=== PATIENT | female | born 1955 | race Caucasian/White ===

== ENCOUNTER → 2019-11-25 11:19 | Outpatient (CLI) | payer OTHER, SELFPAY ==
--- NOTE | ~2019-11-25 | DEXA_ITS ---
Bone Density Report Name: Zohreh Le Age: 64 Sex: Female Ethnicity: White Date of : 1955 Indication: monitoring treatment; prior fracture; hysterectomy; postmenopausal Referring Provider: LUIS A MORAES Study: Bone densitometry was performed. Exam Date: November 25, 2019 Accession number: [id number] Bone Density: Region BMD T-score Z-score Classification AP Spine (L1-L4) 1.100 0.5 2.4 Normal Femoral Neck (Left) 0.686 -1.5 0.1 Osteopenia Total Hip (Left) 1.038 0.8 2.1 Normal Femoral Neck (Right) 0.664 -1.7 -0.1 Osteopenia Total Hip (Right) 0.931 -0.1 1.2 Normal Total Hip Mean 0.985 0.4 1.7 Normal World Health Organization criteria for BMD impression classify patients as: Normal (T-score at or above -1.0), Osteopenia (T-score between -1.0 and -2.5), or Osteoporosis (T-score at or below -2.5). 10-year Fracture Risk: FRAX not reported because: Prior hip or vertebral fracture Treated for osteoporosis Previous Exams: Region Exam Age BMD T-score BMD Change BMD Change Date g/cm2 vs Baseline vs Previous AP Spine(L1-L4) 11/25/2019 64 1.100 0.5 0.068* 0.009 07/15/2017 62 1.091 0.4 0.059* -0.007 05/11/2014 59 1.097 0.5 0.065* 0.065* 12/10/2005 50 1.032 -0.1 Total Hip(Left) 11/25/2019 64 1.038 0.8 0.027 -0.023 07/15/2017 62 1.061 1.0 0.049* 0.052* 05/11/2014 59 1.009 0.5 -0.003 -0.003 12/10/2005 50 1.011 0.6 Total Hip(Right) 11/25/2019 64 0.931 -0.1 0.006 -0.008 07/15/2017 62 0.938 0.0 0.014 -0.019 05/11/2014 59 0.957 0.1 0.033* 0.033* 12/10/2005 50 0.924 -0.1 *Denotes significance at 95% confidence level, LSC for AP Spine = 0.022 g/cm2, LSC for Total Hip = 0.027 g/cm2 Clinical Information Provided by Patient: Have had a previous hip or vertebral fracture Has had a low trauma fracture Is being treated for osteoporosis Has used the following medications: HRT (i.e. estrogen/hormone therapy), Calcium Has the following medical conditions: Hysterectomy Patient maximum height was 63 Menopause Age: 52 Does not regularly consume dairy products Drinks caffeinated beverages Onset of menses at age 12 Number of children 2 Missed period for more than 6 months in a row Impression: The patient has low bone mass, based on the Right
== END ==
PROVIDERS: PCP Family Medicine; Visit Provider Family Medicine
DX: M85.89 Other specified disorders of bone density and structure, multiple sites (principal)
CPT/HCPCS: 77080

== ENCOUNTER → 2019-12-09 10:48 | Outpatient (CLI) | payer OTHER, SELFPAY ==
--- NOTE | ~2019-12-09 | MM_ITS ---
EXAMINATION: MM screening aniceto BI w nathan HISTORY: Screening TECHNIQUE: Craniocaudal and mediolateral oblique 3-D tomosynthesis images were obtained and synthetic 2-D images were generated. CAD analysis was submitted and interpreted. COMPARISON: Comparison to multiple prior studies sequentially, with oldest reviewed study dated 03/21. BREAST PARENCHYMAL COMPOSITION: The breasts are extremely dense, which lowers the sensitivity of mamm ography. FINDINGS: There is no evidence of suspicious mass, calcification, or architectural distortion to sugg est malignancy in either breast. There has been no suspicious interval change. IMPRESSION: 1. No mammographic evidence of malignancy. 2. Recommend routine screening mammography in one year. BI-RADS Category 1: Negative Reviewed, dictated and finalized at location A.
== END ==
PROVIDERS: PCP Family Medicine; Visit Provider Family Medicine
DX: Z12.31 Encounter for screening mammogram for malignant neoplasm of breast (principal)
CPT/HCPCS: 77063; 77067

== ENCOUNTER → 2021-01-05 15:03 | Outpatient (CLI) | payer MEDICARE, SELFPAY ==
--- NOTE | ~2021-01-05 | MM_ITS ---
EXAMINATION: MM screening aniceto BI w ntahan HISTORY: Screening mammogram, family history of breast cancer in her mother. TECHNIQUE: Craniocaudal and mediolateral oblique 3-D tomosynthesis images were obtained and synthetic 2-D images were generated. CAD analysis was submitted and interpreted. COMPARISON: 12/09/2019, 10/23/2018, 06/25/2017 BREAST PARENCHYMAL COMPOSITION: The breasts are extremely dense, which lowers the sensitivity of mamm ography. FINDINGS: Scattered benign-appearing calcifications are present. There is no evidence of suspicious m ass, calcification, or architectural distortion to suggest malignancy in either breast. There has bee n no suspicious interval change. IMPRESSION: 1. No mammographic evidence of malignancy. 2. Recommend routine screening mammography in one year. BI-RADS Category 2: Benign finding(s). Reviewed, dictated and finalized at location A.
== END ==
PROVIDERS: PCP Family Medicine; Visit Provider Physician Assistant Medical
DX: Z12.31 Encounter for screening mammogram for malignant neoplasm of breast (principal)
CPT/HCPCS: 77063; 77067

== ENCOUNTER → 2022-03-14 11:13 | Outpatient (CLI) | payer MEDICARE, SELFPAY ==
--- NOTE | ~2022-03-14 | MM_ITS ---
EXAMINATION: MM screening aniceto BI w nathan HISTORY: Screening mammogram TECHNIQUE: Craniocaudal and mediolateral oblique 3-D tomosynthesis images were obtained and synthetic 2-D images were generated. CAD analysis was submitted and interpreted. COMPARISON: 01/05/2021, 12/09/2019, 10/23/2018 BREAST PARENCHYMAL COMPOSITION: The breasts are extremely dense, which lowers the sensitivity of mamm ography. FINDINGS: Scattered benign-appearing calcifications are present. No suspicious mass, calcification, o r architectural distortion are identified in either breast to suggest malignancy. There has been no s uspicious interval change. IMPRESSION: 1. No mammographic evidence of malignancy. 2. Recommend routine screening mammography in one year. BI-RADS Category 2: Benign finding(s). Reviewed, dictated and finalized at location A.
== END ==
PROVIDERS: PCP Family Medicine; Visit Provider Family Medicine
DX: Z12.31 Encounter for screening mammogram for malignant neoplasm of breast (principal)
CPT/HCPCS: 77063; 77067

== ENCOUNTER → 2023-02-15 13:56 | Outpatient (CLI) | payer MEDICARE, OTHER, SELFPAY ==
--- NOTE | ~2023-02-15 | XR_ITS ---
EXAMINATION: XR foot RT min 3V DATE: 02/15/2023 14:12 INDICATION: Right foot pain TECHNIQUE: Dorsoplantar, lateral, and 2 oblique views of the right foot were obtained. COMPARISON: 02/27/2017 FINDINGS: There are chronic changes of bunionectomy. There is an old healed fracture of the base of t he fifth metatarsal. No acute fracture is identified. 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 IMPRESSION: 1. No acute osseous abnormality. Reviewed, dictated and finalized at location F.
== END ==
PROVIDERS: PCP Nurse Practitioner Family; Visit Provider Nurse Practitioner Family
DX: M79.671 Pain in right foot (principal)
CPT/HCPCS: 73630

== ENCOUNTER → 2023-04-16 13:03 | Outpatient (CLI) | payer MEDICARE, OTHER, SELFPAY ==
--- NOTE | ~2023-04-16 | MM_ITS ---
EXAMINATION: MM screening aniceto BI w nathan HISTORY: Screening mammogram TECHNIQUE: Craniocaudal and mediolateral oblique 3-D tomosynthesis images were obtained and synthetic 2-D images were generated. CAD analysis was submitted and interpreted. COMPARISON: 03/14/2022, 01/05/2021, 12/09/2019 bilateral screening mammogram examinations BREAST PARENCHYMAL COMPOSITION: The breasts are extremely dense, which lowers the sensitivity of mamm ography. FINDINGS: Again noted are scattered bilateral benign calcifications. Bilateral breast masses are suggested. The extremely dense stroma may obscure masses. Bilateral diagn ostic mammogram and complete breast ultrasound examination are recommended. IMPRESSION: 1. Possible bilateral breast masses and extremely dense stroma which may obscure masses 2. Bilateral diagnostic mammography and complete bilateral breast ultrasound examination are recommen ded BI-RADS Category 0: Incomplete: Needs additional imaging evaluation. Reviewed, dictated and finalized at location A. K [employer] IMPRESSION: 1. Possible bilateral breast masses and extremely dense stroma which may obscur e masses 2. Bilateral diagnostic mammography and complete bilateral breast ultrasound ex amination are recommended BI-RADS Category 0: Incomplete: Needs additional imaging evaluation.
== END ==
PROVIDERS: PCP Family Medicine; Visit Provider Family Medicine
DX: Z12.31 Encounter for screening mammogram for malignant neoplasm of breast (principal); R92.8 Other abnormal and inconclusive findings on diagnostic imaging of breast
CPT/HCPCS: 77063; 77067

== ENCOUNTER 2023-07-01 14:18 | Outpatient (CLI) | payer MEDICARE, OTHER, SELFPAY ==
--- NOTE | ~2023-07-01 | MM_ITS ---
EXAMINATION: MM diagnostic aniceto BI w nathan HISTORY: Possible breast masses on screening mammogram TECHNIQUE: Additional 3-D tomosynthesis images of the breasts were performed and synthetic 2-D images were generated. CAD analysis was submitted and interpreted. COMPARISON: 04/16/2023, 03/14/2022, 01/05/2021 FINDINGS: There is a return to baseline fibroglandular appearance with spot compression of the breast s in the areas questioned on screening mammogram. Scattered benign-appearing calcifications are prese nt. No suspicious mass, calcification, or architectural distortion are identified. IMPRESSION: 1. No mammographic evidence of malignancy. 2. Recommend routine screening mammography in one year. BI-RADS Category 2: Benign finding(s). Reviewed, dictated and finalized at location A. U NURSE
== END 2023-07-01 14:19 ==
PROVIDERS: PCP Family Medicine; Visit Provider Family Medicine
DX: R92.8 Other abnormal and inconclusive findings on diagnostic imaging of breast (principal)
CPT/HCPCS: 77062; 77066; G0279

== ENCOUNTER 2024-01-16 08:32 | Day surgery (SDC) | payer MEDICARE, OTHER, SELFPAY ==
[2023-12-26 14:30] VITALS: BMI 21.3
[2024-01-02 12:00] VITALS: BMI 21.0
[2024-01-16 09:11] VITALS: BP 137/64; PULSE 67; RESP 14; TEMP 36.6; O2SAT 100
[2024-01-16] MEDS: LACTATED RINGERS 1,000 ML 150 ML IV CONT (09:18)
--- NOTE | 2024-01-16 09:32 | WPDANESEPPF ---
Anes - Initial Pre Proc Eval Procedure: Operation Date: 01/16/24 10:30 Proposed Procedures p Diagnostic Colonoscopy - Hector Kevin MD Date/Time: 01/16/24 09:32 Surgeon: Hector Kevin MD Pre Op Diagnosis: History of Colon Polyps Patient Data Age: 68 Gender: F Height: 1.57 m Weight: 50.75 kg Last Vital Signs Temp 97.8 F 01/16/24 09:11 Pulse 67 01/16/24 09:11 Resp 14 01/16/24 09:11 BP 137/64 01/16/24 09:11 Pulse Ox 100 01/16/24 09:11 O2 Del Method Room Air 01/16/24 09:11 Allergies Allergy/AdvReac Type Severity Reaction Status Date / Time Sulfa (Sulfonamide Allergy Intermediate rash Verified 01/16/24 09:10 Antibiotics) bacitracin Allergy Unknown Rash Verified 01/16/24 09:10 polymyxin B Allergy Unknown Rash Verified 01/16/24 09:10 sulfamethizole Allergy Unknown Nausea Verified 01/16/24 09:10 Home Medications Medication Instructions Recorded Confirmed Type calcium carbonate 650 mg PO DAILY 06/06/20 01/16/24 History cholecalciferol (vitamin D3) 125 125 mcg PO DAILY 06/06/20 01/16/24 History mcg (5,000 unit) capsule magnesium-potassium 99 mg- 90 mg 1 cap PO DAILY 06/06/20 01/16/24 History capsule valacyclovir 1 gram tablet 1,000 mg PO DAILY 02/15/23 01/16/24 History (Valtrex) estradiol 0.075 mg/24 hr See Rx Instructions .Route 06/06/23 01/16/24 Rx semiweekly transdermal patch .COMPLEX #24 patches (Kami) fluorometholone 0.1 % eye 1 drp LEFT EYE DIRECTED 12/12/23 01/16/24 History drops,suspension ascorbic acid (vitamin C) 500 mg 500 mg PO DAILY 01/02/24 01/16/24 History capsule omega-3 fatty acids-vitamin E 1 cap PO DAILY 01/02/24 01/16/24 History 1,000 mg capsule turmeric 400 mg capsule 400 mg PO DAILY 01/02/24 01/16/24 History Patient hx anesthesia problems: none Family hx anesthesia problems: none Results Review: All pre-operative results and documents have been reviewed as part of the pre-operative evaluation. [facility] Past Medical History Medical History HTN (hypertension), benign Mixed hyperlipidemia MVP (mitral valve prolapse) Osteopenia after menopause Surgical History Surgical History History of hysterectomy Family History Family History Mother Family history of malignant neoplasm of breast Father Family history of elevated blood lipids, Onset Age: 59 Family history of cardiovascular disease, Onset Age: 59 Other Diabetes mellitus Social History Social History Smoking status: Never smoker Second hand tobacco smoke exposure: No Alcohol intake: never Substance use: never Substance use type: does not use Lack of Transportation: No Lack of Food: Sometimes True Current Housing: I Have Housing Concerned About Future Housing: No Difficulty Paying Gas/Electric Bills: No Difficulty Paying for Meds: No Currently Unemployed: No Education: Bachelor's Degree Difficulty w/ Childcare or Family Care: No Living arrangements: with family Occupation/Education: retired Gender identity (if verbalized by the patient): Female Spiritual care concerns: No Agree to blood products: Yes Anes - Eval Final PreProcedure Day of Procedure 01/16/24 09:32 Patient weight: normal Heart: other Lungs: clear to auscultation Airway: Mallampati scale class 1 Neurological: alert and oriented Last oral intake: >/= 8 hours ASA classification: II Emergent: no Anesthetic plan: proceed Anesthesia type and monitoring: general GIVS Results Review: All pre-operative results and documents have been reviewed as part of the pre-operative evaluation. Informed Consent: The patient's anesthetic plan and its attendant risks and benefits were discussed with the patient/family
--- NOTE | 2024-01-16 09:40 | PM.HPGS ---
History of Present Illness History of Present Illness Consent: Risks, benefits, and alternatives have been discussed and questions answered. Patient agrees to proceed with procedure. Chief complaint: History of Colon Polyps Narrative: Zohreh Le is a 68 year old female presents for screening colonoscopy. Patient's current appetite and bowel movements are normal. Patient denies abdominal pain. He has she has had no bleeding. We history noncontributory. Patient did have a history of colon polyps in the past. Most recently 2019. In 2001 had a malignant polyp. Removed with polypectomy. Family history remains noncontributory. Patient presents today for screening exam. Review of Systems Review of Systems: All systems reviewed & are unremarkable except as noted in HPI and below PMFSH Past Medical History Medical History HTN (hypertension), benign Mixed hyperlipidemia MVP (mitral valve prolapse) Osteopenia after menopause Surgical History Surgical History History of hysterectomy Family History Family History Mother Family history of malignant neoplasm of breast Father Family history of elevated blood lipids, Onset Age: 59 Family history of cardiovascular disease, Onset Age: 59 Other Diabetes mellitus Social History Social History Smoking status: Never smoker Second hand tobacco smoke exposure: No Alcohol intake: never Substance use: never Substance use type: does not use Lack of Transportation: No Lack of Food: Sometimes True Current Housing: I Have Housing Concerned About Future Housing: No Difficulty Paying Gas/Electric Bills: No Difficulty Paying for Meds: No Currently Unemployed: No Education: Bachelor's Degree Difficulty w/ Childcare or Family Care: No Living arrangements: with family Occupation/Education: retired Gender identity (if verbalized by the patient): Female Spiritual care concerns: No Agree to blood products: Yes Meds Home Medications and Allergies Home Medications Medication Instructions Recorded Confirmed Type calcium carbonate 650 mg PO DAILY 06/06/20 01/16/24 History cholecalciferol (vitamin D3) 125 125 mcg PO DAILY 06/06/20 01/16/24 History mcg (5,000 unit) capsule magnesium-potassium 99 mg- 90 mg 1 cap PO DAILY 06/06/20 01/16/24 History capsule valacyclovir 1 gram tablet 1,000 mg PO DAILY 02/15/23 01/16/24 History (Valtrex) estradiol 0.075 mg/24 hr See Rx Instructions .Route 06/06/23 01/16/24 Rx semiweekly transdermal patch .COMPLEX #24 patches (Kami) fluorometholone 0.1 % eye 1 drp LEFT EYE DIRECTED 12/12/23 01/16/24 History drops,suspension ascorbic acid (vitamin C) 500 mg 500 mg PO DAILY 01/02/24 01/16/24 History capsule omega-3 fatty acids-vitamin E 1 cap PO DAILY 01/02/24 01/16/24 History 1,000 mg capsule turmeric 400 mg capsule 400 mg PO DAILY 01/02/24 01/16/24 History Allergies Allergy/AdvReac Type Severity Reaction Status Date / Time Sulfa (Sulfonamide Allergy Intermediate rash Verified 01/16/24 09:10 Antibiotics) bacitracin Allergy Unknown Rash Verified 01/16/24 09:10 polymyxin B Allergy Unknown Rash Verified 01/16/24 09:10 sulfamethizole Allergy Unknown Nausea Verified 01/16/24 09:10 Vital Signs Vital Signs - 24 hr 01/16/24 09:11 Temperature 97.8 F Pulse Rate 67 Respiratory Rate 14 Blood Pressure 137/64 Pulse Oximetry 100 Oxygen Delivery Room Air Exam Narrative: Physical exam reveals patient to be alert. Vital signs stable. HEENT exam is unremarkable. Patient is anicteric. Lungs are clear to auscultation and percussion. Heart is without murmur or extra sounds. Abdominal exam bowel sounds are present soft nontender with
[2024-01-16 10:04] VITALS: BP 119/67; PULSE 73; RESP 16; O2SAT 99
[2024-01-16 10:14] VITALS: BP 121/77; PULSE 64; RESP 16; O2SAT 100
[2024-01-16 10:24] VITALS: BP 131/77; PULSE 64; RESP 18; O2SAT 100
--- NOTE | 2024-01-16 10:46 | WPDANESPN ---
Anes - Prog Note Post-Op Date/Time: 01/16/24 10:46 Cardiovascular status: normal Respiratory status: normal Airway patency: baseline Mental status: baseline Post-Op hydration status: normal Vital Signs: Last Vital Signs Temp 36.6 C 01/16/24 09:11 Pulse 64 01/16/24 10:24 Resp 18 01/16/24 10:24 BP 131/77 01/16/24 10:24 Pulse Ox 100 01/16/24 10:24 O2 Del Method Room Air 01/16/24 10:24 Pain Score (VAS): 0/10 I/O: Intake & Output 01/15/24 01/16/24 01/16/24 23:59 07:59 15:59 Intake Total 600 Balance 600 Patient Feedback: Patient satisfied with anesthetic care.
== END 2024-01-16 10:43 | disposition home or self-care (01) ==
PROVIDERS: PCP Family Medicine; Visit Provider Internal Medicine Gastroenterology
PROC: 0DJD8ZZ Inspection of Lower Intestinal Tract, Via Natural or Artificial Opening Endoscopic (ICD-10-PCS; CPT 45378; principal; 2024-01-16 10:30)
DX: Z86.010 Personal history of colon polyps (principal); K64.8 Other hemorrhoids
CPT/HCPCS: G0105

== ENCOUNTER 2024-03-31 14:12 | Outpatient (CLI) | payer MEDICARE, OTHER, SELFPAY ==
--- NOTE | ~2024-03-31 | DEXA_ITS ---
Bone Density Report Name: VEGA GREENBERG Age: 69 Sex: Female Ethnicity: White Date of : 1955 Indication: postmenopausal; screening for osteoporosis; prior fracture; hysterectomy; Referring Provider: LUIS A MORAES Study: Bone densitometry was performed. Exam Date: March 31, 2024 Accession number: [id number] Bone Density: Region BMD T-score Z-score Classification AP Spine(L1-L4) 1.185 1.3 3.4 Normal Femoral Neck (Left) 0.660 -1.7 0.2 Osteopenia Total Hip (Left) 0.972 0.2 1.8 Normal Femoral Neck (Right) 0.647 -1.8 0.0 Osteopenia Total Hip (Right) 0.935 -0.1 1.5 Normal Femoral Neck Mean 0.654 -1.8 0.1 Osteopenia Total Hip Mean 0.953 0.1 1.7 Normal World Health Organization criteria for BMD impression classify patients as: Normal (T-score at or above -1.0), Osteopenia (T-score between -1.0 and -2.5), or Osteoporosis (T-score at or below -2.5). 10-year Fracture Risk: FRAX not reported because: Prior hip or vertebral fracture Clinical Information Provided by Patient: Have had a previous hip or vertebral fracture Has had a low trauma fracture Has used the following medications: HRT (i.e. estrogen/hormone therapy), Vitamin D, Calcium Has the following medical conditions: Hysterectomy Patient maximum height was 63 Menopause Age: 48 Drinks caffeinated beverages Onset of menses at age 12 Number of children 2 Missed period for more than 6 months in a row Impression: The patient has low bone mass, based on the Right Femoral Neck T-score. The patient has risk factors, including: previous fracture. Discussion: INCREASED RISK OF FRACTURE DUE TO HISTORY OF FRACTURE. The patient's previous fracture puts the patient at high risk of a future fracture. In untreated patients, the risk of osteoporotic fracture increases approximately two-fold for each 1.0 SD decrease in T-score. Low bone density is not the only risk factor for fracture; also consider factors such as patient's age, frailty or poor health, risk of falling, risk of injury, previous osteoporotic fracture, family history of osteoporosis, cigarette smoking, low body weight, etc. Not everyone with a low trauma fracture has osteoporosis; osteomalacia and other metabolic bone disorders should also be considered. Patients who have osteoporosis should be evaluated for specific diseases and conditions (secondary causes) that may cause or contribute to bone loss and fracture risk. National Osteoporosis Foundation (NOF) recommends pharmacologic intervention for patients with a prior hip or vertebral fracture regardless of BMD T-score. The patient should follow a healthful lifestyle (good nutrition with adequate calcium and vitamin D, and appropriate weight-bearing exercise). Follow-Up: Consider a repeat BMD and Vertebral Fracture Assessment (VFA) exam in 2 years or sooner if medically necessary, to reassess this patient's status. Reported by: DENEEN on 04/02/2024 1:58:00 PM. Reviewed, dictated and finalized at location A.
== END 2024-03-31 14:13 | disposition home or self-care (01) ==
PROVIDERS: PCP Family Medicine; Visit Provider Family Medicine
DX: Z78.0 Asymptomatic menopausal state (principal); M85.89 Other specified disorders of bone density and structure, multiple sites
CPT/HCPCS: 77080

== ENCOUNTER 2024-04-20 12:39 | Outpatient (CLI) | payer MEDICARE, OTHER, SELFPAY ==
--- NOTE | ~2024-04-20 | MM_ITS ---
EXAMINATION: MM screening aniceto BI w nathan HISTORY: Screening TECHNIQUE: Craniocaudal and mediolateral oblique 3-D tomosynthesis images were obtained and synthetic 2-D images were generated. CAD analysis was submitted and interpreted. COMPARISON: Comparison to multiple prior studies sequentially, with oldest reviewed study dated 10/2018. BREAST PARENCHYMAL COMPOSITION: Dense: The breasts are extremely dense, which lowers the sensitivity of mammography. FINDINGS: There is no evidence of suspicious mass, calcification, or architectural distortion to sugg est malignancy in either breast. There has been no suspicious interval change. IMPRESSION: 1. No mammographic evidence of malignancy. 2. Recommend routine screening mammography in one year. BI-RADS Category 1: Negative Reviewed, dictated and finalized at location B. UP
== END 2024-04-20 12:40 | disposition home or self-care (01) ==
LOC: MICIMG 12:41
PROVIDERS: PCP Family Medicine; Visit Provider Family Medicine
DX: Z12.31 Encounter for screening mammogram for malignant neoplasm of breast (principal)
CPT/HCPCS: 77063; 77067

== ENCOUNTER 2025-04-22 12:41 | Outpatient (CLI) | payer MEDICARE, SELFPAY ==
--- NOTE | ~2025-04-22 | MM_ITS ---
EXAMINATION: MM screening aniceto BI w nathan HISTORY: Screening. TECHNIQUE: Craniocaudal and mediolateral oblique 3-D tomosynthesis images were obtained and synthetic 2-D images were generated. CAD analysis was submitted and interpreted. COMPARISON: 2023, 2022, and 2021. BREAST PARENCHYMAL COMPOSITION: Dense: The breasts are extremely dense FINDINGS: No suspicious masses are seen. There are no suspicious calcifications. No unexplained architectural distortion is seen. There are no skin or nipple abnormalities identified. There is no adenopathy seen on the images submitted. IMPRESSION: No mammographic evidence to suggest malignancy is seen. The patient may return to screening mammography as per ACR guidelines. BI-RADS 1 - Negative. Reviewed, dictated and finalized at location C. GN TEACHER
== END 2025-04-22 12:42 | disposition home or self-care (01) ==
PROVIDERS: PCP Family Medicine; Visit Provider Family Medicine
DX: Z12.31 Encounter for screening mammogram for malignant neoplasm of breast (principal)
CPT/HCPCS: 77063; 77067